=== PATIENT | female | born 1995 | race Caucasian/White ===

== ENCOUNTER 2018-09-01 14:58 | Emergency (ER) | payer SELFPAY ==
[~2018-09-01] VITALS: Ht 167.6 cm; Wt 54.6 kg
[2018-09-01] MEDS ORDERED: TRAZODONE100 MG PO (15:26)
[2018-09-01 16:10] VITALS: BP 111/66
== END 2018-09-01 16:10 | disposition home or self-care (01) | DRG 607 ==
LOC: ED 14:58
DX: R21 Rash and other nonspecific skin eruption (principal); O99.340 Other mental disorders complicating pregnancy, unspecified trimester; F31.9 Bipolar disorder, unspecified; F41.9 Anxiety disorder, unspecified; Z3A.00 Weeks of gestation of pregnancy not specified

== ENCOUNTER 2018-09-07 23:55 | Emergency (ER) | payer SELFPAY ==
[~2018-09-07] VITALS: Ht 167.6 cm; Wt 53.0 kg
[~2018-09-07 23:55] MED LIST: TRAZODONE100 MG PO
[2018-09-08] MEDS ORDERED: AMOXICILLIN500 MG PO (00:36)
[2018-09-08 01:03] VITALS: BP 116/71
== END 2018-09-08 01:03 | disposition home or self-care (01) | DRG 156 ==
LOC: ED 23:55
DX: H60.92 Unspecified otitis externa, left ear (principal); H66.92 Otitis media, unspecified, left ear; F31.9 Bipolar disorder, unspecified; F41.9 Anxiety disorder, unspecified

== ENCOUNTER 2018-11-22 00:41 | Emergency (ER) | payer OTHER ==
[~2018-11-22] VITALS: Ht 167.6 cm; Wt 62.7 kg
[~2018-11-22 00:41] MED LIST changes: +AMOXICILLIN500 MG PO
[2018-11-22] MEDS ORDERED: LORAZEPAM0.5 MG PO (01:04)
[2018-11-22] MEDS ORDERED: EFFEXOR XR75 MG PO (01:05)
[2018-11-22 01:54] VITALS: BP 114/69
== END 2018-11-22 01:55 | disposition home or self-care (01) ==
LOC: ED 00:41
DX: O98.819 Other maternal infectious and parasitic diseases complicating pregnancy, unspecified trimester (principal); B82.0 Intestinal helminthiasis, unspecified; O99.340 Other mental disorders complicating pregnancy, unspecified trimester; F31.9 Bipolar disorder, unspecified; Z3A.00 Weeks of gestation of pregnancy not specified

== ENCOUNTER 2019-01-28 14:29 | Emergency (ER) | payer OTHER ==
[~2019-01-28] VITALS: Ht 167.6 cm; Wt 80.0 kg
[~2019-01-28 14:29] MED LIST changes: +EFFEXOR XR75 MG PO; +LORAZEPAM0.5 MG PO
[2019-01-28 15:11] LABS: HEMATOCRIT 35.3 % (37.0-47.0); HEMOGLOBIN 11.7 g/dl (12.0-16.0); IMMATURE GRANULOCYTES 0.7 % (0.0-5.0); MEAN CELL VOLUME 98.3 fL CALC (80.0-100.0); MEAN CORPUSCULAR HGB 32.6 pG CALC (26.0-32.0); MEAN CORPUSCULAR HGB CONC 33.1 g/L CALC (32.0-36.0); NEUT# 7.51 thou/uL (2.00-7.15); RED BLOOD COUNT 3.59 mill/uL (4.20-5.60); RED CELL DISTRI WIDTH 12.9 % (11.5-15.5)
[2019-01-28 15:44] LABS: ANION GAP 12 (6-22 (CALC)); BUN 7 mg/dL (7-17); BUN/CREATININE RATIO 20 (12-20 (CALC)); CARBON DIOXIDE 22 mmol/l (22-30); CHLORIDE 106 mmol/l (95-108); CREATININE 0.4 mg/dL (0.5-1.0); GFR > 60 ML/MIN (>=60 (CALC)); GFR FOR AFR.AMER. > 60 ML/MIN (>=60 (CALC)); SODIUM 136 mmol/l (137-146)
[2019-01-28 16:00] VITALS: BP 104/61
== END 2019-01-28 17:35 | disposition home or self-care (01) ==
LOC: ED 14:29
PROVIDERS: Family Medicine
DX: O99.282 Endocrine, nutritional and metabolic diseases complicating pregnancy, second trimester (principal); E86.0 Dehydration; Z3A.27 27 weeks gestation of pregnancy; R55 Syncope and collapse

== ENCOUNTER 2019-03-23 20:36 | Emergency (ER) | payer OTHER ==
[~2019-03-23] VITALS: Ht 167.6 cm; Wt 80.0 kg
[2019-03-23 21:03] LABS: HEMATOCRIT 32.7 % (37.0-47.0); HEMOGLOBIN 11.1 g/dl (12.0-16.0); IMMATURE GRANULOCYTES 0.7 % (0.0-5.0); MEAN CORPUSCULAR HGB 31.4 pG CALC (26.0-32.0); MEAN CORPUSCULAR HGB CONC 33.9 g/L CALC (32.0-36.0); NEUT# 8.83 thou/uL (2.00-7.15); RED BLOOD COUNT 3.54 mill/uL (4.20-5.60); RED CELL DISTRI WIDTH 13.5 % (11.5-15.5)
[2019-03-23 21:04] LABS: MEAN CELL VOLUME 92.4 fL CALC (80.0-100.0)
[2019-03-23 21:19] LABS: ALBUMIN 3.2 g/dL (3.2-5.0); ALKALINE PHOSPHATASE 130 u/l (38-126); ANION GAP 12 (6-22 (CALC)); BILIRUBIN, TOTAL 0.3 mg/dL (0.0-1.4); BUN 8 mg/dL (7-17); BUN/CREATININE RATIO 18 (12-20 (CALC)); CARBON DIOXIDE 23 mmol/l (22-30); CHLORIDE 105 mmol/l (95-108); CREATININE 0.4 mg/dL (0.5-1.0); GFR > 60 ML/MIN (>=60 (CALC)); GFR FOR AFR.AMER. > 60 ML/MIN (>=60 (CALC)); POTASSIUM 3.9 mmol/l (3.5-5.1); SGOT/AST 21 u/l (14-36); SODIUM 136 mmol/l (137-146); TOTAL PROTEIN 5.8 g/dL (6.3-8.2)
[2019-03-23 23:30] VITALS: BP 108/82
== END 2019-03-23 23:30 | disposition home or self-care (01) ==
LOC: ED 20:36
PROVIDERS: Emergency Medicine
DX: O26.893 Other specified pregnancy related conditions, third trimester (principal); R42 Dizziness and giddiness; Z3A.35 35 weeks gestation of pregnancy

== ENCOUNTER 2019-03-31 17:55 | Emergency (ER) | payer OTHER ==
[~2019-03-31] VITALS: Ht 167.6 cm; Wt 80.0 kg
[2019-03-31] MEDS ORDERED: SEROQUEL100 MG PO (18:07)
[2019-03-31] MEDS ORDERED: PRENATAL1 TA1 PO (18:08)
[2019-03-31] MEDS ORDERED: PROBIOTIC1 TAB PO (18:08)
[2019-03-31] MEDS ORDERED: AMOXICILLIN500 MG PO (18:17)
[2019-03-31 18:18] VITALS: BP 118/79
== END 2019-03-31 18:18 | disposition home or self-care (01) ==
LOC: ED 17:55
DX: K04.7 Periapical abscess without sinus (principal); K02.9 Dental caries, unspecified; Z33.1 Pregnant state, incidental

== ENCOUNTER 2019-06-21 15:04 | Emergency (ER) | payer OTHER ==
[~2019-06-21] VITALS: Ht 167.6 cm; Wt 70.0 kg
[~2019-06-21 15:04] MED LIST changes: +PRENATAL1 TA1 PO; +PROBIOTIC1 TAB PO; +SEROQUEL100 MG PO
[2019-06-21 15:30] VITALS: BP 121/69
[2019-06-21] MEDS ORDERED: AMOXICILLIN500 MG PO (15:31)
[2019-06-21] MEDS ORDERED: LIDOCAINE HCL VIS2 % TOP (15:31)
== END 2019-06-21 15:42 | disposition home or self-care (01) ==
LOC: ED 15:04
DX: K05.10 Chronic gingivitis, plaque induced (principal)

== ENCOUNTER 2019-11-04 | Emergency (ER) | payer SELFPAY ==
[~2019-11-04] MED LIST changes: +LIDOCAINE HCL VIS2 % TOP
[2019-11-04 01:14] LABS: IMMATURE GRANULOCYTES 0.3 % (0.0-5.0); MEAN CELL VOLUME 92.1 fL CALC (80.0-100.0); MEAN CORPUSCULAR HGB 29.6 pG CALC (26.0-32.0); MEAN CORPUSCULAR HGB CONC 32.2 g/L CALC (32.0-36.0); NEUT# 6.91 thou/uL (2.00-7.15); RED BLOOD COUNT 4.96 mill/uL (4.20-5.60); RED CELL DISTRI WIDTH 13.2 % (11.5-15.5)
[2019-11-04 01:15] LABS: HEMATOCRIT 45.7 % (37.0-47.0); HEMOGLOBIN 14.7 g/dl (12.0-16.0)
[2019-11-04 01:25] LABS: ALKALINE PHOSPHATASE 125 u/l (38-126); BILIRUBIN, TOTAL 0.2 mg/dL (0.0-1.4); BUN 15 mg/dL (7-17); BUN/CREATININE RATIO 23 (12-20 (CALC)); CHLORIDE 104 mmol/l (95-108); CREATININE 0.6 mg/dL (0.5-1.0); GFR > 60 ML/MIN (>=60 (CALC)); GFR FOR AFR.AMER. > 60 ML/MIN (>=60 (CALC)); LIPASE 134 u/l (23-300); POTASSIUM 4.3 mmol/l (3.5-5.1); SGOT/AST 28 u/l (14-36); SODIUM 140 mmol/l (137-146)
[2019-11-04 01:28] LABS: ALBUMIN 4.8 g/dL (3.2-5.0); ANION GAP 12 (6-22 (CALC)); CARBON DIOXIDE 28 mmol/l (22-30); TOTAL PROTEIN 8.7 g/dL (6.3-8.2)
[2019-11-04 01:53] LABS: URINE BILIRUBIN - DIPSTICK NEGATIVE (NEGATIVE); URINE BLOOD DIPSTICK NEGATIVE (NEGATIVE); URINE COLOR YELLOW; URINE GLUCOSE - DIPSTICK NEGATIVE (NEGATIVE); URINE KETONE NEGATIVE (NEGATIVE); URINE LEUK ESTERASE NEGATIVE (NEGATIVE); URINE NITRITE - DIPSTICK NEGATIVE (Negative); URINE PH 6.5 (4.5-8.0); URINE PROTEIN - DIPSTICK NEGATIVE (NEG-TRACE); URINE SPECIFIC GRAVITY 1.025; URINE UROBILINOGEN - DIPSTICK 0.2 E.U./dL (0.2)
[2019-11-04] MEDS ORDERED: PHENERGAN25 MG/TAB PO (03:17)
[2019-11-04] MEDS ORDERED: LOMOTIL2.5 MG PO (03:17)
== END 2019-11-04 03:52 | disposition home or self-care (01) | DRG 392 ==
PROVIDERS: Family Medicine
DX: K52.9 Noninfective gastroenteritis and colitis, unspecified (principal)

== ENCOUNTER 2020-01-11 20:22 | Emergency (ER) | payer SELFPAY ==
[~2020-01-11 20:22] MED LIST changes: +LOMOTIL2.5 MG PO; +PHENERGAN25 MG/TAB PO
[2020-01-11 21:52] VITALS: BP 110/66
== END 2020-01-11 21:44 | disposition home or self-care (01) | DRG 605 ==
LOC: ED 20:22
PROC: 0HQMXZZ Repair Right Foot Skin, External Approach (ICD-10-PCS; principal; 2020-01-11)
DX: S91.111A Laceration without foreign body of right great toe without damage to nail, initial encounter (principal); W25.XXXA Contact with sharp glass, initial encounter; Y92.009 Unspecified place in unspecified non-institutional (private) residence as the place of occurrence of the external cause

== ENCOUNTER 2020-06-20 | Emergency (ER) | payer SELFPAY ==
[~2020-06-20] VITALS: Ht 167.6 cm; Wt 66.0 kg
[2020-06-20 00:52] LABS: URINE BILIRUBIN - DIPSTICK NEGATIVE (NEGATIVE); URINE BLOOD DIPSTICK NEGATIVE (NEGATIVE); URINE COLOR YELLOW; URINE GLUCOSE - DIPSTICK NEGATIVE (NEGATIVE); URINE KETONE NEGATIVE (NEGATIVE); URINE LEUK ESTERASE NEGATIVE (NEGATIVE); URINE NITRITE - DIPSTICK NEGATIVE (Negative); URINE PROTEIN - DIPSTICK NEGATIVE (NEG-TRACE); URINE SPECIFIC GRAVITY <=1.005; URINE UROBILINOGEN - DIPSTICK 0.2 E.U./dL (0.2)
[2020-06-20 00:56] LABS: HEMATOCRIT 41.9 % (37.0-47.0); IMMATURE GRANULOCYTES 0.3 % (0.0-5.0); MEAN CELL VOLUME 95.7 fL CALC (80.0-100.0); MEAN CORPUSCULAR HGB CONC 33.4 g/dL CAL (32.0-36.0); NEUT# 6.08 thou/uL (2.00-7.15); RED BLOOD COUNT 4.38 mill/uL (4.20-5.60); RED CELL DISTRI WIDTH 12.1 % (11.5-15.5)
[2020-06-20 01:07] LABS: ALBUMIN 4.4 g/dL (3.2-5.0); ALKALINE PHOSPHATASE 94 u/l (38-126); ANION GAP 10 (6-22 (CALC)); BUN 7 mg/dL (7-17); BUN/CREATININE RATIO 11 (12-20 (CALC)); CARBON DIOXIDE 25 mmol/l (22-30); CHLORIDE 105 mmol/l (95-108); CREATININE 0.6 mg/dL (0.5-1.0); GFR > 60 ML/MIN (>=60 (CALC)); GFR FOR AFR.AMER. > 60 ML/MIN (>=60 (CALC)); POTASSIUM 3.8 mmol/l (3.5-5.1); SGOT/AST 19 u/l (14-36); SODIUM 137 mmol/l (137-146); TOTAL PROTEIN 7.1 g/dL (6.3-8.2)
[2020-06-20 01:09] LABS: BILIRUBIN, TOTAL 0.3 mg/dL (0.0-1.4)
[2020-06-20 03:00] VITALS: BP 123/59
== END 2020-06-20 03:10 | disposition home or self-care (01) | DRG 392 ==
LOC: ED
PROVIDERS: Family Medicine
DX: R10.2 Pelvic and perineal pain (principal); F31.9 Bipolar disorder, unspecified; F41.9 Anxiety disorder, unspecified; Z97.5 Presence of (intrauterine) contraceptive device
CPT/HCPCS: Q9967

== ENCOUNTER 2020-09-23 13:22 | Emergency (ER) | payer SELFPAY ==
[~2020-09-23] VITALS: Ht 167.6 cm; Wt 68.0 kg
[2020-09-23 14:45] LABS: URINE BILIRUBIN - DIPSTICK NEGATIVE (NEGATIVE); URINE BLOOD DIPSTICK MODERATE (NEGATIVE); URINE COLOR YELLOW; URINE GLUCOSE - DIPSTICK NEGATIVE (NEGATIVE); URINE KETONE NEGATIVE (NEGATIVE); URINE NITRITE - DIPSTICK NEGATIVE (Negative); URINE PH 6.5 (4.5-8.0); URINE PROTEIN - DIPSTICK NEGATIVE (NEG-TRACE); URINE SPECIFIC GRAVITY <=1.005; URINE UROBILINOGEN - DIPSTICK 0.2 E.U./dL (0.2)
[2020-09-23 14:46] LABS: URINE LEUK ESTERASE MODERATE (NEGATIVE)
[2020-09-23 14:53] LABS: URINE SQUAMOUS EPITHELIAL CELL RARE EPI/hpf (0-FEW)
[2020-09-23] MEDS ORDERED: KEFLEX500 M1 PO (15:04)
[2020-09-23] MEDS ORDERED: ADDERALL10 MG PO (15:15)
[2020-09-23 15:17] VITALS: BP 115/63
== END 2020-09-23 15:17 | disposition home or self-care (01) | DRG 690 ==
LOC: ED 13:22 → LABREF 14:55
PROVIDERS: Family Medicine
DX: N39.0 Urinary tract infection, site not specified (principal); F31.9 Bipolar disorder, unspecified; F41.9 Anxiety disorder, unspecified; M41.9 Scoliosis, unspecified; F17.200 Nicotine dependence, unspecified, uncomplicated; B95.7 Other staphylococcus as the cause of diseases classified elsewhere

== ENCOUNTER 2021-03-10 08:36 | Emergency (ER) | payer MEDICAID ==
[~2021-03-10] VITALS: Ht 167.6 cm; Wt 67.0 kg
[~2021-03-10 08:36] MED LIST changes: +ADDERALL10 MG PO; +KEFLEX500 M1 PO
[2021-03-10 09:34] LABS: URINE BILIRUBIN - DIPSTICK NEGATIVE (NEGATIVE); URINE BLOOD DIPSTICK NEGATIVE (NEGATIVE); URINE COLOR YELLOW; URINE GLUCOSE - DIPSTICK NEGATIVE (NEGATIVE); URINE KETONE NEGATIVE (NEGATIVE); URINE LEUK ESTERASE NEGATIVE (NEGATIVE); URINE PH 5.5 (4.5-8.0); URINE PROTEIN - DIPSTICK NEGATIVE (NEG-TRACE); URINE SPECIFIC GRAVITY >=1.030; URINE UROBILINOGEN - DIPSTICK 0.2 E.U./dL (0.2)
[2021-03-10 09:34] LABS: HEMATOCRIT 42.1 % (37.0-47.0); HEMOGLOBIN 13.7 g/dl (12.0-16.0); IMMATURE GRANULOCYTES 0.1 % (0.0-5.0); MEAN CELL VOLUME 98.4 fL CALC (80.0-100.0); MEAN CORPUSCULAR HGB CONC 32.5 g/dL CAL (32.0-36.0); NEUT# 8.57 thou/uL (2.00-7.15); RED BLOOD COUNT 4.28 mill/uL (4.20-5.60); RED CELL DISTRI WIDTH 12.3 % (11.5-15.5)
[2021-03-10 09:35] LABS: URINE NITRITE - DIPSTICK NEGATIVE (Negative)
[2021-03-10 09:46] LABS: ALBUMIN 4.4 g/dL (3.2-5.0); ALKALINE PHOSPHATASE 64 u/l (38-126); AMYLASE 80 u/l (30-110); ANION GAP 13 (6-22 (CALC)); BILIRUBIN, TOTAL 0.3 mg/dL (0.0-1.4); BUN 10 mg/dL (7-17); BUN/CREATININE RATIO 19 (12-20 (CALC)); CARBON DIOXIDE 26 mmol/l (22-30); CHLORIDE 103 mmol/l (95-108); CREATININE 0.5 mg/dL (0.5-1.0); GFR > 60 ML/MIN (>=60 (CALC)); GFR FOR AFR.AMER. > 60 ML/MIN (>=60 (CALC)); LIPASE 116 u/l (23-300); POTASSIUM 4.5 mmol/l (3.5-5.1); SGOT/AST 21 u/l (14-36); SODIUM 138 mmol/l (137-146); TOTAL PROTEIN 7.3 g/dL (6.3-8.2)
[2021-03-10] MEDS ORDERED: PROBIOTI3 (09:47)
[2021-03-10] MEDS ORDERED: NAPROXEN500 MG PO (11:21)
[2021-03-10 11:32] VITALS: BP 102/59
== END 2021-03-10 11:33 | disposition home or self-care (01) | DRG 761 ==
LOC: ED 08:36
PROVIDERS: Emergency Medicine
DX: N83.201 Unspecified ovarian cyst, right side (principal); F41.9 Anxiety disorder, unspecified; F31.9 Bipolar disorder, unspecified; F17.200 Nicotine dependence, unspecified, uncomplicated; Z97.5 Presence of (intrauterine) contraceptive device
CPT/HCPCS: Q9967

== ENCOUNTER 2021-07-26 10:57 | Emergency (ER) | payer OTHER, MEDICAID ==
[~2021-07-26] VITALS: Ht 167.6 cm; Wt 65.0 kg
[~2021-07-26 10:57] MED LIST changes: +NAPROXEN500 MG PO; +PROBIOTI3
[2021-07-26] MEDS ORDERED: VOLTAREN - GENE75 MG PO (12:49)
[2021-07-26 12:58] VITALS: BP 103/59
== END 2021-07-26 13:02 | disposition home or self-care (01) | DRG 74 ==
LOC: ED 10:57
DX: G57.01 Lesion of sciatic nerve, right lower limb (principal); F31.9 Bipolar disorder, unspecified; F41.9 Anxiety disorder, unspecified; F17.200 Nicotine dependence, unspecified, uncomplicated

== ENCOUNTER 2021-08-30 16:37 | Emergency (ER) | payer SELFPAY ==
[~2021-08-30] VITALS: Ht 167.6 cm; Wt 66.0 kg
[~2021-08-30 16:37] MED LIST changes: +VOLTAREN - GENE75 MG PO
[2021-08-30] MEDS ORDERED: [UNRECOGNIZED DRUG - OTHER] PO (17:13)
[2021-08-30 18:17] LABS: URINE BILIRUBIN - DIPSTICK NEGATIVE (NEGATIVE); URINE BLOOD DIPSTICK LARGE (NEGATIVE); URINE COLOR YELLOW; URINE GLUCOSE - DIPSTICK NEGATIVE (NEGATIVE); URINE KETONE NEGATIVE (NEGATIVE); URINE LEUK ESTERASE MODERATE (Negative); URINE NITRITE - DIPSTICK NEGATIVE (Negative); URINE PROTEIN - DIPSTICK TRACE mg/dL (NEG-TRACE); URINE SPECIFIC GRAVITY 1.015; URINE UROBILINOGEN - DIPSTICK 0.2 E.U./dL (0.2)
[2021-08-30 18:20] LABS: URINE CLARITY CLOUDY
[2021-08-30 18:26] LABS: URINE SQUAMOUS EPITHELIAL CELL FEW EPI/hpf (0-FEW); URINE WBC >100 WBC/hpf (0-5)
[2021-08-30] MEDS ORDERED: CEPHALEXIN500 MG PO (18:50)
[2021-08-30 18:58] VITALS: BP 112/64
== END 2021-08-30 19:05 | disposition home or self-care (01) | DRG 690 ==
LOC: ED 16:37
PROVIDERS: Family Medicine
DX: N39.0 Urinary tract infection, site not specified (principal); F31.9 Bipolar disorder, unspecified; F41.9 Anxiety disorder, unspecified; F17.290 Nicotine dependence, other tobacco product, uncomplicated

== ENCOUNTER 2021-10-02 21:05 | Emergency (ER) | payer MEDICAID ==
[~2021-10-02 21:05] MED LIST changes: +CEPHALEXIN500 MG PO; +[UNRECOGNIZED DRUG - OTHER] PO
[2021-10-03] MEDS ORDERED: PYRIDIUM200 MG PO (18:19)
== END 2021-10-03 00:34 | disposition left against medical advice (07) | DRG 951 ==
LOC: ED 21:05 → LWOBS 10-03 00:33
DX: Z53.21 Procedure and treatment not carried out due to patient leaving prior to being seen by health care provider (principal)

== ENCOUNTER 2021-10-03 17:08 | Emergency (ER) | payer MEDICAID ==
[~2021-10-03] VITALS: Ht 167.6 cm; Wt 75.0 kg
[2021-10-03 18:04] LABS: URINE BILIRUBIN - DIPSTICK NEGATIVE (NEGATIVE); URINE BLOOD DIPSTICK NEGATIVE (NEGATIVE); URINE COLOR YELLOW; URINE GLUCOSE - DIPSTICK NEGATIVE (NEGATIVE); URINE KETONE NEGATIVE (NEGATIVE); URINE LEUK ESTERASE NEGATIVE (NEGATIVE); URINE PH 7.5 (4.5-8.0); URINE PROTEIN - DIPSTICK NEGATIVE (NEG-TRACE); URINE SPECIFIC GRAVITY 1.015; URINE UROBILINOGEN - DIPSTICK 0.2 E.U./dL (0.2)
[2021-10-03 18:05] LABS: URINE NITRITE - DIPSTICK NEGATIVE (Negative)
[2021-10-03] MEDS ORDERED: PYRIDIUM200 MG PO (18:19)
[2021-10-03 18:35] VITALS: BP 102/63
== END 2021-10-03 18:49 | disposition home or self-care (01) ==
LOC: ED 17:08
DX: R30.0 Dysuria (principal); F31.9 Bipolar disorder, unspecified; F41.9 Anxiety disorder, unspecified; F17.210 Nicotine dependence, cigarettes, uncomplicated

== ENCOUNTER 2022-09-30 17:25 | Emergency (ER) | payer MEDICAID ==
[~2022-09-30] VITALS: Ht 167.6 cm; Wt 50.0 kg
[~2022-09-30 17:25] MED LIST changes: +PYRIDIUM200 MG PO
[2022-09-30 18:42] VITALS: BP 114/72
== END 2022-09-30 18:43 | disposition home or self-care (01) ==
LOC: ED 17:25
DX: S61.210A Laceration without foreign body of right index finger without damage to nail, initial encounter (principal); F31.9 Bipolar disorder, unspecified; F41.9 Anxiety disorder, unspecified; F17.200 Nicotine dependence, unspecified, uncomplicated; W26.0XXA Contact with knife, initial encounter; Y93.G1 Activity, food preparation and clean up; Y92.000 Kitchen of unspecified non-institutional (private) residence as the place of occurrence of the external cause

== ENCOUNTER 2022-11-11 08:02 | Emergency (ER) | payer MEDICAID ==
[~2022-11-11] VITALS: Ht 167.6 cm; Wt 65.8 kg
[2022-11-11 08:23] VITALS: BP 97/66
[2022-11-11 09:00] VITALS: BP 97/63
[2022-11-11 10:03] LABS: BASO% 0.3 % (0-3); EOS% 1.5 % (0-8); HEMATOCRIT 38.8 % (37.0-47.0); HEMOGLOBIN 12.1 g/dl (12.0-16.0); IMMATURE GRANULOCYTES 0.3 % (0.0-5.0); LYMPH% 25.1 % (15-41); MEAN CELL VOLUME 99.5 fL CALC (80.0-100.0); MEAN CORPUSCULAR HGB CONC 31.2 g/dL CAL (32.0-36.0); MONO% 6.9 % (2-13); NEUT# 3.91 thou/uL (2.00-7.15); NEUT% 65.9 % (42-76); RED BLOOD COUNT 3.9 mill/uL (4.20-5.60); RED CELL DISTRI WIDTH 12.9 % (11.5-15.5)
[2022-11-11 10:10] LABS: ALBUMIN 4.3 g/dL (3.2-5.0); ALKALINE PHOSPHATASE 47 u/l (38-126); ANION GAP 9 (6-22 (CALC)); BUN 15 mg/dL (7-17); BUN/CREATININE RATIO 24 (12-20 (CALC)); CARBON DIOXIDE 29 mmol/l (22-30); CHLORIDE 105 mmol/l (95-108); CREATININE 0.6 mg/dL (0.5-1.0); GFR FOR AFR.AMER. > 60 ML/MIN (>=60 (CALC)); GFR OTHER RACES > 60 ML/MIN (>=60 (CALC)); POTASSIUM 4.2 mmol/l (3.5-5.1); SGOT/AST 22 u/l (14-36); SODIUM 139 mmol/l (137-146); TOTAL PROTEIN 6.9 g/dL (6.3-8.2)
[2022-11-11 11:12] VITALS: BP 102/63
== END 2022-11-11 11:17 | disposition home or self-care (01) ==
LOC: ED 08:02
PROVIDERS: Family Medicine
DX: F41.0 Panic disorder [episodic paroxysmal anxiety] (principal); F31.9 Bipolar disorder, unspecified; F17.200 Nicotine dependence, unspecified, uncomplicated

== ENCOUNTER 2023-09-13 06:37 | Emergency (ER) | payer SELFPAY ==
[~2023-09-13] VITALS: Ht 167.6 cm; Wt 77.0 kg
[~2023-09-13 06:37] MED LIST changes: +BACTRIM DS1 TAB PO
[2023-09-13] MEDS ORDERED: [UNRECOGNIZED DRUG - OTHER] (07:21)
[2023-09-13 07:32] VITALS: BP 119/78
[2023-09-13] MEDS ORDERED: AMOXICILLIN500 M2 PO (07:34)
[2023-09-13] MEDS ORDERED: MOTRIN800 MG PO (07:34)
[2023-09-13 07:45] VITALS: BP 122/82
[2023-09-13 08:00] VITALS: BP 118/73
[2023-09-13 08:12] VITALS: BP 118/73
== END 2023-09-13 08:20 | disposition home or self-care (01) | DRG 159 ==
LOC: ED 06:37
DX: K05.20 Aggressive periodontitis, unspecified (principal); K02.9 Dental caries, unspecified; F41.9 Anxiety disorder, unspecified; F31.9 Bipolar disorder, unspecified; Z72.0 Tobacco use